=== PATIENT | female | born 1935 | race Caucasian/White ===

== ENCOUNTER 2018-09-16 10:19 | Emergency (ER) | payer MEDICARE ==
[~2018-09-16] VITALS: Ht 170.2 cm; Wt 60.0 kg
[~2018-09-16 10:19] MED LIST: APIX5TAB3 PO; QUIN10TA16 PO
[2018-09-16 10:40] LABS: BASOPHILS # (AUTO) 0.1 X10'3 (0-0.2); BASOPHILS % (AUTO) 1.4 % (0-1); EOSINOPHILS # (AUTO) 0.1 X10'3 (0-0.9); EOSINOPHILS % (AUTO) 1.3 % (0-6); HEMATOCRIT 46.1 % (35.0-45.0); HEMOGLOBIN 15.1 g/dl (12.0-16.0); LYMPHOCYTES # (AUTO) 1.7 X10'3 (1.1-4.8); LYMPHOCYTES % (AUTO) 25.8 % (21-51); MEAN CORPUSCULAR HEMOGLOBIN 28.8 PG (27.0-31.0); MEAN CORPUSCULAR HGB CONC 32.8 % (33.0-36.5); MEAN CORPUSCULAR VOLUME 87.7 FL (78-98); MEAN PLATELET VOLUME 7.8 FL (7.4-10.4); MONOCYTES # (AUTO) 0.7 X10'3 (0-0.9); MONOCYTES % (AUTO) 10.3 % (2-12); NEUTROPHILS # (AUTO) 4.2 X10'3 (1.8-7.7); NEUTROPHILS % (AUTO) 61.2 % (42-75); PLATELET COUNT 338 X10'3 (140-440); RED BLOOD COUNT 5.26 X10'6 (4.20-5.60); RED CELL DISTRIBUTION WIDTH 13.2 % (11.5-14.5); WHITE BLOOD COUNT 6.8 X10'3 (4.5-11.0)
[2018-09-16] MEDS ORDERED: SOTA80TA73 PO (10:46)
[2018-09-16 10:53] LABS: INR 1.1 INR; PARTIAL THROMBOPLASTIN TIME 42 SECONDS (22-32); PROTHROMBIN TIME 10.7 SECONDS (9.0-12.0)
[2018-09-16 10:54] LABS: ALANINE AMINOTRANSFERASE 18 U/L (12-78); ALBUMIN 3.5 G/DL (3.4-5.0); ALBUMIN/GLOBULIN RATIO 0.9 (1.1-1.5); ALKALINE PHOSPHATASE 90 IU/L (46-116); ANION GAP 8 (8-16); ASPARTATE AMINO TRANSFERASE 13 U/L (10-37); BILIRUBIN,TOTAL 0.6 MG/DL (0.1-1.0); BLOOD UREA NITROGEN 15 MG/DL (7-18); BUN/CREATININE RATIO 16.1 (6.6-38.0); CALCIUM 8.6 MG/DL (8.5-10.1); CHLORIDE 104 MMOL/L (99-107); CREATININE 0.93 MG/DL (0.40-0.90); GLUCOSE 128 MG/DL (70-104); POTASSIUM 4.2 MMOL/L (3.5-5.1); SODIUM 138 MMOL/L (135-145); TOTAL CARBON DIOXIDE 25.8 MMOL/L (24-32); TOTAL PROTEIN 7.4 G/DL (6.4-8.2); eGFR 58 ML/MIN
[2018-09-16] MEDS ORDERED: diltiazem 5mg/ml 5ml inj. IV ONE ×3 (10:55→14:35)
[2018-09-16] MEDS ORDERED: magnesium 2GM in 50ml NS 50 ML IV ONE (10:55)
[2018-09-16] MEDS ORDERED: diltiazem-D5W 125mg/125ml 125 ML IV ONE (10:55)
[2018-09-16] MEDS ORDERED: normal saline 1000ml 1,000 ML IV ONE (10:55)
[2018-09-16] MEDS ORDERED: aspirin 325mg tablet PO ONE (10:55)
--- NOTE | 2018-09-16 10:58 | NUR ---
PT MOVED FROM [facility] BED TO BED 04
--- NOTE | 2018-09-16 11:49 | NUR ---
brake note:patient on bed,family at bedside,denies discomfort.We Will monitor.
--- NOTE | 2018-09-16 11:53 | NUR ---
Dr. Trent is in a procedure and will not be avaiable for another hour.
--- NOTE | 2018-09-16 13:42 | NUR ---
PT SITTING UP IN BED, LAB AT BEDSIDE TO DRAW 3 HOUR TROPONIN.
[2018-09-16] MEDS ORDERED: sotalol 80mg tablet PO ONE (14:20)
--- NOTE | 2018-09-16 14:29 | NUR ---
PT AMBULATORY TO THE BATHROOM WITH STEADY GAIT, CORAL TO PHARMACY TO [facility] PER ORDERS FOR TREAT AND DISCHARGE.
[2018-09-16 14:52] VITALS: BP 140/87
== END 2018-09-16 15:10 | disposition home or self-care (01) ==
LOC: ER 10:19
DX: I48.92 Unspecified atrial flutter (principal); I48.91 Unspecified atrial fibrillation; Z98.890 Other specified postprocedural states; Z90.89 Acquired absence of other organs; Z88.6 Allergy status to analgesic agent; Z88.0 Allergy status to penicillin; Z88.2 Allergy status to sulfonamides
CPT/HCPCS: 36415; 71045; 80053; 83735; 84484; 85025; 85610; 85730; 93005; 96365; 96368; 96376; 99284; J3475; J7030; J3490

== ENCOUNTER 2019-02-09 09:10 | Emergency (ER) | payer MEDICARE ==
[~2019-02-09] VITALS: Ht 170.2 cm; Wt 60.0 kg
[~2019-02-09 09:10] MED LIST changes: +SOTA80TA73 PO
[2019-02-09 09:33] LABS: HEMOGLOBIN 14.8 g/dl (12.0-16.0); LYMPHOCYTES # (AUTO) 2.1 X10'3 (1.1-4.8); MEAN PLATELET VOLUME 7.4 FL (7.4-10.4); MONOCYTES # (AUTO) 0.7 X10'3 (0-0.9)
[2019-02-09 09:35] LABS: BASOPHILS % (AUTO) 0.3 % (0-1); EOSINOPHILS # (AUTO) 0.2 X10'3 (0-0.9); EOSINOPHILS % (AUTO) 2.6 % (0-6); HEMATOCRIT 43.7 % (35.0-45.0); LYMPHOCYTES % (AUTO) 32.7 % (21-51); MEAN CORPUSCULAR HGB CONC 33.8 g/dL (33.0-36.5); MEAN CORPUSCULAR VOLUME 85.7 FL (78-98); MONOCYTES % (AUTO) 11.2 % (2-12); NEUTROPHILS # (AUTO) 3.4 X10'3 (1.8-7.7); NEUTROPHILS % (AUTO) 53.2 % (42-75); PLATELET COUNT 282 X10'3 (140-440); RED CELL DISTRIBUTION WIDTH 14.5 % (11.5-14.5); WHITE BLOOD COUNT 6.4 X10'3 (4.5-11.0)
[2019-02-09 09:50] LABS: ALANINE AMINOTRANSFERASE 18 U/L (12-78); ALBUMIN 3.5 G/DL (3.4-5.0); ALBUMIN/GLOBULIN RATIO 0.9 (1.1-1.5); ALKALINE PHOSPHATASE 85 IU/L (46-116); ANION GAP 7 (8-16); ASPARTATE AMINO TRANSFERASE 10 U/L (10-37); BILIRUBIN,TOTAL 0.4 MG/DL (0.1-1.0); BLOOD UREA NITROGEN 18 MG/DL (7-18); BUN/CREATININE RATIO 18.9 (6.6-38.0); CALCIUM 9.1 MG/DL (8.5-10.1); CHLORIDE 106 MMOL/L (99-107); CREATININE 0.95 MG/DL (0.40-0.90); GLUCOSE 127 MG/DL (70-104); PARTIAL THROMBOPLASTIN TIME 35 SECONDS (22-32); POTASSIUM 4.2 MMOL/L (3.5-5.1); SODIUM 140 MMOL/L (135-145); TOTAL PROTEIN 7.4 G/DL (6.4-8.2); eGFR 56 ML/MIN
[2019-02-09 10:07] LABS: MAGNESIUM 1.9 MG/DL (1.5-2.4)
[2019-02-09] MEDS ORDERED: CHOL100044 PO (10:48)
[2019-02-09 10:51] LABS: CLARITY,URINE CLEAR (Clear); COLOR,URINE YELLOW (Yellow); GLUCOSE, URINE NEGATIVE (Neg); KETONES,URINE NEGATIVE (Neg); LEUKOCYTE ESTERASE ,URINE NEGATIVE (Neg); NITRITES, URINE NEGATIVE (Neg); OCCULT BLOOD,URINE MODERATE (Neg); PROTEIN,URINE NEGATIVE (Neg); UROBILINOGEN,URINE 0.2 E.U/dL (0.2-1.0)
[2019-02-09 10:52] LABS: UA COLLECTION TYPE CLN CATCH MIDSTREAM
[2019-02-09 10:56] LABS: MUCUS STRANDS FEW /LPF (Neg); SQUAMOUS EPITHELIAL CELL,UR MODERATE /LPF (FEW)
[2019-02-09 10:57] LABS: BACTERIA,URINE FEW /HPF (Neg); RBC,URINE 0-2 /HPF (0-2); WBC,URINE 0-4 /HPF (0-4)
[2019-02-09] MEDS ORDERED: normal saline 1000ML IV soln IVB ONE (11:25)
[2019-02-09] MEDS ORDERED: etomidate 2mg/ml inj. IV ONE (11:25)
--- NOTE | 2019-02-09 12:02 | NUR ---
SUCCESSFUL CARDIOVERSION, HEART RATE DROPPED FROM 120-140 DOWN TO 60-80, NO ADVERSE S/E FROM [facility] NOTED
[2019-02-09 12:31] VITALS: BP 155/99
--- NOTE | 2019-02-09 12:38 | NUR ---
amb on RA 99% HR 76. NO C/O OF WEAKNESS OR DIZZINESS
== END 2019-02-09 13:00 | disposition home or self-care (01) ==
LOC: ER 09:10
DX: I48.0 Paroxysmal atrial fibrillation (principal); Z98.890 Other specified postprocedural states; Z88.6 Allergy status to analgesic agent; Z88.0 Allergy status to penicillin; Z88.2 Allergy status to sulfonamides; Z88.8 Allergy status to other drugs, medicaments and biological substances; Z79.01 Long term (current) use of anticoagulants; Z79.899 Other long term (current) drug therapy
CPT/HCPCS: 36415; 71045; 80053; 81001; 83735; 83880; 84145; 84484; 85025; 85610; 85730; 87070; 92960; 93005; 99285; J7030; J3490

== ENCOUNTER 2021-12-17 10:36 | Day surgery (SDC) | payer MEDICARE ==
[2021-12-17] VITALS (9 sets, daily range): BP systolic 107–125; BP diastolic 65–81
[~2021-12-17] VITALS: Ht 170.2 cm; Wt 62.6 kg
[~2021-12-17 10:36] MED LIST changes: +CHOL100044 PO; -QUIN10TA16 PO
[2021-12-17] MEDS ORDERED: MIDAZolam 1mg/ml 10ml vial IV ONE (10:55)
[2021-12-17] MEDS ORDERED: fentaNYL/PF 50MCG/1 ML 2ML syringe IV ONE (10:55)
[2021-12-17] MEDS ORDERED: normal saline 1000ml 1,000 ML IV SCH (10:55)
[2021-12-17] MEDS ORDERED: DRON400T6 PO (11:01)
[2021-12-17] MEDS ORDERED: OSC500T PO (11:01)
[2021-12-17] MEDS ORDERED: FURO40TA4 PO (11:01)
[2021-12-17] MEDS ORDERED: VITC500T PO (11:01)
[2021-12-29] MEDS ORDERED: METO-395 PO (03:29)
[2021-12-29] MEDS ORDERED: POTA20PA31 PO (11:22)
[2022-01-02] MEDS ORDERED: SACU1TAB PO (11:34)
[2022-01-02] MEDS ORDERED: EMPA10TA PO (11:34)
[2022-01-02] MEDS ORDERED: AMIO200T67 PO (11:34)
[2022-01-02] MEDS ORDERED: METO-395 PO (11:34)
== END 2021-12-17 14:25 | disposition home or self-care (01) ==
LOC: SSTAY O 10:36
PROVIDERS: ATTEND Internal Medicine Interventional Cardiology
DX: I48.0 Paroxysmal atrial fibrillation (principal); I10 Essential (primary) hypertension; I42.9 Cardiomyopathy, unspecified; F17.210 Nicotine dependence, cigarettes, uncomplicated; Z88.0 Allergy status to penicillin; Z88.2 Allergy status to sulfonamides; Z88.8 Allergy status to other drugs, medicaments and biological substances; Z79.01 Long term (current) use of anticoagulants; Z79.899 Other long term (current) drug therapy
CPT/HCPCS: 92960; 93005; J2250; J3010; J7030

== ENCOUNTER 2022-02-07 02:09 | Inpatient (IN) | payer MEDICARE ==
[~2022-02-07] VITALS: Ht 167.6 cm; Wt 59.3 kg
[~2022-02-07 02:09] MED LIST changes: +AMIO200T67 PO; +EMPA10TA PO; +FURO40TA4 PO; +METO-395 PO; +OSC500T PO; +POTA20PA31 PO; +SACU1TAB PO; -SOTA80TA73 PO; +VITC500T PO
[2022-02-07 02:43] LABS: BASOPHILS # (AUTO) 0.1 X10'3 (0-0.2); BASOPHILS % (AUTO) 1.4 % (0-1); EOSINOPHILS # (AUTO) 0.3 X10'3 (0-0.9); EOSINOPHILS % (AUTO) 3.4 % (0-6); HEMATOCRIT 43.5 % (35.0-45.0); HEMOGLOBIN 14.4 g/dl (12.0-16.0); LYMPHOCYTES # (AUTO) 2.6 X10'3 (1.1-4.8); LYMPHOCYTES % (AUTO) 27.6 % (21-51); MEAN CORPUSCULAR HEMOGLOBIN 28.7 PG (27.0-31.0); MEAN PLATELET VOLUME 7.8 FL (7.4-10.4); MONOCYTES # (AUTO) 0.8 X10'3 (0-0.9); MONOCYTES % (AUTO) 8.9 % (2-12); NEUTROPHILS # (AUTO) 5.5 X10'3 (1.8-7.7); NEUTROPHILS % (AUTO) 58.7 % (42-75); PLATELET COUNT 288 X10'3 (140-440); RED BLOOD COUNT 5.01 X10'6 (4.20-5.60); RED CELL DISTRIBUTION WIDTH 15.3 % (11.5-14.5); WHITE BLOOD COUNT 9.3 X10'3 (4.5-11.0)
[2022-02-07 02:48] LABS: ALANINE AMINOTRANSFERASE 35 U/L (12-78); ALBUMIN 3.3 G/DL (3.4-5.0); ALBUMIN/GLOBULIN RATIO 0.9 (1.1-1.5); ALKALINE PHOSPHATASE 96 IU/L (46-116); ANION GAP 9 (8-16); ASPARTATE AMINO TRANSFERASE 31 U/L (10-37); BILIRUBIN,TOTAL 0.6 MG/DL (0.1-1.0); BLOOD UREA NITROGEN 22 MG/DL (7-18); CALCIUM 8.4 MG/DL (8.5-10.1); CHLORIDE 107 MMOL/L (99-107); CREATININE 1.16 MG/DL (0.40-0.90); GLUCOSE 189 MG/DL (70-104); POTASSIUM 4.6 MMOL/L (3.5-5.1); SODIUM 140 MMOL/L (135-145); TOTAL CARBON DIOXIDE 23.7 MMOL/L (24-32); TOTAL PROTEIN 6.9 G/DL (6.4-8.2); eGFR 44 ML/MIN
[2022-02-07 02:53] LABS: D-DIMER 0.59 MG/L FEU (0-0.50)
[2022-02-07 02:57] LABS: MAGNESIUM 2.1 MG/DL (1.5-2.4)
[2022-02-07] MEDS ORDERED: furosemide 10 MG/1 ML 10ml inj IV ONE (03:20)
[2022-02-07] MEDS ORDERED: acetaminophen 325mg tablet PO PRN ×2 (03:40)
[2022-02-07] MEDS ORDERED: ondansetron/PF 4mg/2ml inj IV PRN (03:40)
[2022-02-07] MEDS ORDERED: morphine 2 MG/ML inj. syringe IV PRN ×2 (03:40)
[2022-02-07] MEDS ORDERED: magnesium hydroxide 30ml (MOM) UD suspension PO PRN (03:40)
[2022-02-07] MEDS ORDERED: mag hydrox/Alum hydrox/simeth 30ml oral suspension PO PRN (03:40)
[2022-02-07] MEDS ORDERED: HYDROcodone/acetaminophen 5mg/325mg tablet PO PRN (03:40)
[2022-02-07 04:41] LABS: CLARITY,URINE CLEAR (Clear); COLOR,URINE YELLOW (Yellow); GLUCOSE, URINE NEGATIVE (Neg); KETONES,URINE NEGATIVE (Neg); LEUKOCYTE ESTERASE ,URINE NEGATIVE (Neg); NITRITES, URINE NEGATIVE (Neg); OCCULT BLOOD,URINE NEGATIVE (Neg); PROTEIN,URINE NEGATIVE (Neg); UROBILINOGEN,URINE 0.2 E.U/dL (0.2-1.0)
[2022-02-07 04:49] LABS: UA COLLECTION TYPE URINAL
[2022-02-07] MEDS ORDERED: EMPA25TA PO (06:21)
[2022-02-07] MEDS ORDERED: DRON400T6 PO (06:21)
[2022-02-07] MEDS ORDERED: AMIO200T61 PO (06:21)
[2022-02-07] MEDS ORDERED: METO-384 PO (06:21)
[2022-02-07] MEDS: docusate sod 100mg capsule PO SCH ×2 (08:00→19:32)
[2022-02-07] MEDS ORDERED: furosemide 40mg/4ml inj IV SCH ×2 (08:00→16:49)
[2022-02-07 08:13] LABS: HEMOGLOBIN A1C 6.2 % (4.5-6.2)
--- NOTE | 2022-02-07 08:47 | NUR ---
patient placed on a wic.
[2022-02-07 13:15] VITALS: BP 126/79
[2022-02-07 15:00] VITALS: BP 110/73
--- NOTE | 2022-02-07 17:10 | NUR ---
CONTACTED PHARMACY TO CHANGE THE TIME OF LASIX 40MG IV BID, FROM 1999 TO 1600 TO IMPROVE THE PT'S REST.
[2022-02-07 18:00] VITALS: BP 129/84
--- NOTE | 2022-02-07 18:21 | NUR ---
Patient in room PCU 3017. I have received report from SHANELLE BARNARD, and had the opportunity to ask questions and assume patient care.
[2022-02-07] MEDS: apixaban 5mg tablet PO SCH (19:32)
[2022-02-07 22:00] VITALS: BP 114/74
[2022-02-08 02:00] VITALS: BP 98/65
[2022-02-08 06:00] VITALS: BP 96/68
[2022-02-08 06:46] LABS: ALBUMIN 2.8 G/DL (3.4-5.0); ANION GAP 11 (8-16); BLOOD UREA NITROGEN 22 MG/DL (7-18); BUN/CREATININE RATIO 20.8 (6.6-38.0); CALCIUM 8.5 MG/DL (8.5-10.1); CHLORIDE 102 MMOL/L (99-107); CREATININE 1.06 MG/DL (0.40-0.90); GLUCOSE 95 MG/DL (70-104); POTASSIUM 3.9 MMOL/L (3.5-5.1); SODIUM 140 MMOL/L (135-145); TOTAL CARBON DIOXIDE 27.3 MMOL/L (24-32); eGFR 49 ML/MIN
--- NOTE | 2022-02-08 06:46 | NUR ---
Patient in room PCU 3017. I have received report from RADHA BARNARD, and had the opportunity to ask questions and assume patient care.
[2022-02-08 06:47] LABS: EOSINOPHILS # (AUTO) 0.2 X10'3 (0-0.9); LYMPHOCYTES # (AUTO) 1.3 X10'3 (1.1-4.8); MONOCYTES # (AUTO) 0.7 X10'3 (0-0.9); NEUTROPHILS # (AUTO) 3.1 X10'3 (1.8-7.7); RED BLOOD COUNT 4.93 X10'6 (4.20-5.60)
[2022-02-08 06:51] LABS: BASOPHILS % (AUTO) 0.6 % (0-1); EOSINOPHILS % (AUTO) 3.2 % (0-6); LYMPHOCYTES % (AUTO) 24.6 % (21-51); MEAN CORPUSCULAR HEMOGLOBIN 28.5 PG (27.0-31.0); MEAN CORPUSCULAR HGB CONC 33.5 g/dL (33.0-36.5); MEAN CORPUSCULAR VOLUME 85.2 FL (78-98); MEAN PLATELET VOLUME 7.5 FL (7.4-10.4); MONOCYTES % (AUTO) 12.9 % (2-12); NEUTROPHILS % (AUTO) 58.7 % (42-75); PLATELET COUNT 252 X10'3 (140-440); RED CELL DISTRIBUTION WIDTH 14.5 % (11.5-14.5); WHITE BLOOD COUNT 5.3 X10'3 (4.5-11.0)
[2022-02-08] MEDS ORDERED: metoprolol succinate 25mg (24-HOUR) SR. Tablet PO SCH (08:00)
[2022-02-08] MEDS: furosemide 40mg/4ml inj IV SCH ×2 (08:12→15:47)
[2022-02-08] MEDS: apixaban 5mg tablet PO SCH ×2 (08:16→19:15)
[2022-02-08] MEDS: EMPAGLIFLOZIN 25 MG TABLET PO SCH (08:17)
[2022-02-08] MEDS: amiodarone 200mg tablet PO SCH (08:22)
[2022-02-08] MEDS: docusate sod 100mg capsule PO SCH ×2 (08:23→19:16)
[2022-02-08] MEDS: losartan 25mg tablet PO SCH (08:23)
[2022-02-08] MEDS ORDERED: metoprolol succinate 25mg (24-HOUR) SR. Tablet PO ONE (09:50)
[2022-02-08 11:00] VITALS: BP 122/81
[2022-02-08] MEDS ORDERED: ondansetron 4mg rapidly disintigrating tab PO PRN (13:40)
[2022-02-08 15:00] VITALS: BP 100/68
--- NOTE | 2022-02-08 16:25 | NUR ---
Patient in room PCU 3017. I have received report from RADHA Abraham and had the opportunity to ask questions and assume patient care.
[2022-02-08 18:00] VITALS: BP 127/106
--- NOTE | 2022-02-08 18:30 | NUR ---
Problems reprioritized. Patient report given, questions answered & plan of care reviewed with SHANELLE Simms.
[2022-02-08 22:00] VITALS: BP 103/71
[2022-02-09] VITALS (8 sets, daily range): BP systolic 94–127; BP diastolic 61–89
[2022-02-09] MEDS ORDERED: digoxin 250mcg/ml 2ml ampule IV ONE ×2 (02:00→17:50)
--- NOTE | 2022-02-09 06:10 | NUR ---
Patient in room PCU 3017. I have received report from RADHA Simms and had the opportunity to ask questions and assume patient care.
[2022-02-09 06:17] LABS: BASOPHILS # (AUTO) 0.1 X10'3 (0-0.2); EOSINOPHILS # (AUTO) 0.3 X10'3 (0-0.9); EOSINOPHILS % (AUTO) 4.4 % (0-6); HEMATOCRIT 41.7 % (35.0-45.0); HEMOGLOBIN 13.9 g/dl (12.0-16.0); LYMPHOCYTES # (AUTO) 1.2 X10'3 (1.1-4.8); LYMPHOCYTES % (AUTO) 19.8 % (21-51); MEAN CORPUSCULAR HEMOGLOBIN 28.2 PG (27.0-31.0); MEAN CORPUSCULAR HGB CONC 33.4 g/dL (33.0-36.5); MEAN CORPUSCULAR VOLUME 84.3 FL (78-98); MEAN PLATELET VOLUME 7.6 FL (7.4-10.4); MONOCYTES # (AUTO) 0.8 X10'3 (0-0.9); MONOCYTES % (AUTO) 13.3 % (2-12); NEUTROPHILS # (AUTO) 3.6 X10'3 (1.8-7.7); NEUTROPHILS % (AUTO) 60.5 % (42-75); PLATELET COUNT 275 X10'3 (140-440); RED BLOOD COUNT 4.95 X10'6 (4.20-5.60); RED CELL DISTRIBUTION WIDTH 14.4 % (11.5-14.5)
[2022-02-09 06:44] LABS: ALBUMIN 2.8 G/DL (3.4-5.0); ANION GAP 9 (8-16); BLOOD UREA NITROGEN 26 MG/DL (7-18); CALCIUM 8.6 MG/DL (8.5-10.1); CHLORIDE 101 MMOL/L (99-107); CREATININE 1.18 MG/DL (0.40-0.90); GLUCOSE 101 MG/DL (70-104); POTASSIUM 3.3 MMOL/L (3.5-5.1); SODIUM 139 MMOL/L (135-145); TOTAL CARBON DIOXIDE 28.9 MMOL/L (24-32); eGFR 44 ML/MIN
[2022-02-09] MEDS ORDERED: POTASSIUM BICARB 20meq eff tab 20 MEQ TABLET.EFF PO PRN (07:20)
[2022-02-09] MEDS ORDERED: magnesium Cl slow-release 64mg tablet PO PRN (07:20)
[2022-02-09] MEDS ORDERED: potassium CL 10mEq/100ml bag 100 ML IV PRN (07:20)
[2022-02-09] MEDS ORDERED: magnesium 4gm in 100ml NS 100 ML IV PRN (07:20)
[2022-02-09] MEDS ORDERED: magnesium 2GM in 50ml NS 50 ML IV PRN (07:20)
[2022-02-09] MEDS ORDERED: metoprolol succinate 25mg (24-HOUR) SR. Tablet PO SCH (08:00)
[2022-02-09 08:01] LABS: MAGNESIUM 1.9 MG/DL (1.5-2.4)
[2022-02-09] MEDS: K and/or MAG REPLACEMENT MC SCH ×2 (10:18→19:32)
[2022-02-09] MEDS: POTASSIUM BICARB 20meq eff tab 20 MEQ TABLET.EFF PO PRN ×3 (10:35→17:56)
[2022-02-09] MEDS: EMPAGLIFLOZIN 25 MG TABLET PO SCH (10:35)
[2022-02-09] MEDS: amiodarone 200mg tablet PO SCH (10:35)
[2022-02-09] MEDS: losartan 25mg tablet PO SCH (10:36)
[2022-02-09] MEDS: docusate sod 100mg capsule PO SCH ×2 (10:37→19:32)
[2022-02-09] MEDS: apixaban 5mg tablet PO SCH ×2 (10:38→19:32)
[2022-02-09] MEDS: furosemide 40mg/4ml inj IV SCH ×2 (10:38→16:00)
[2022-02-09] MEDS: metoprolol succinate 25mg (24-HOUR) SR. Tablet PO SCH (14:20)
--- NOTE | 2022-02-09 18:20 | NUR ---
Problems reprioritized. Patient report given, questions answered & plan of care reviewed with RADHA Jackson.
--- NOTE | 2022-02-09 18:22 | NUR ---
Patient in room PCU 3013V. I have received report from RADHA Sanchez and had the opportunity to ask questions and assume patient care.
[2022-02-10 01:56] VITALS: BP 131/85
[2022-02-10] MEDS ORDERED: digoxin 250mcg/ml 2ml ampule IV SCH (02:30)
[2022-02-10 06:00] VITALS: BP 119/77
[2022-02-10 06:41] LABS: ALBUMIN 2.8 G/DL (3.4-5.0); ANION GAP 6 (8-16); BLOOD UREA NITROGEN 21 MG/DL (7-18); BUN/CREATININE RATIO 20.6 (6.6-38.0); CALCIUM 8.5 MG/DL (8.5-10.1); CHLORIDE 102 MMOL/L (99-107); CREATININE 1.02 MG/DL (0.40-0.90); GLUCOSE 108 MG/DL (70-104); MAGNESIUM 2.2 MG/DL (1.5-2.4); POTASSIUM 4.4 MMOL/L (3.5-5.1); SODIUM 138 MMOL/L (135-145); TOTAL CARBON DIOXIDE 29.9 MMOL/L (24-32); eGFR 52 ML/MIN
[2022-02-10 06:42] LABS: BASOPHILS # (AUTO) 0.1 X10'3 (0-0.2); BASOPHILS % (AUTO) 1.4 % (0-1); EOSINOPHILS # (AUTO) 0.3 X10'3 (0-0.9); EOSINOPHILS % (AUTO) 5.1 % (0-6); HEMOGLOBIN 14.5 g/dl (12.0-16.0); LYMPHOCYTES # (AUTO) 0.8 X10'3 (1.1-4.8); LYMPHOCYTES % (AUTO) 14.8 % (21-51); MEAN CORPUSCULAR HEMOGLOBIN 27.8 PG (27.0-31.0); MEAN CORPUSCULAR HGB CONC 32.9 g/dL (33.0-36.5); MEAN CORPUSCULAR VOLUME 84.4 FL (78-98); MEAN PLATELET VOLUME 7.4 FL (7.4-10.4); MONOCYTES # (AUTO) 0.8 X10'3 (0-0.9); MONOCYTES % (AUTO) 14.3 % (2-12); NEUTROPHILS # (AUTO) 3.5 X10'3 (1.8-7.7); NEUTROPHILS % (AUTO) 64.4 % (42-75); PLATELET COUNT 296 X10'3 (140-440); RED BLOOD COUNT 5.21 X10'6 (4.20-5.60); RED CELL DISTRIBUTION WIDTH 14.3 % (11.5-14.5); WHITE BLOOD COUNT 5.5 X10'3 (4.5-11.0)
--- NOTE | 2022-02-10 06:53 | NUR ---
Problems reprioritized. Patient report given, questions answered & plan of care reviewed with RADHA Abraham.
--- NOTE | 2022-02-10 07:11 | NUR ---
Patient in room PCU 3017. I have received report from RADHA LOPEZ, and had the opportunity to ask questions and assume patient care.
[2022-02-10] MEDS: K and/or MAG REPLACEMENT MC SCH ×2 (08:00→19:46)
[2022-02-10] MEDS: furosemide 40mg/4ml inj IV SCH ×2 (09:04→17:11)
[2022-02-10] MEDS: EMPAGLIFLOZIN 25 MG TABLET PO SCH (09:06)
[2022-02-10] MEDS: docusate sod 100mg capsule PO SCH ×2 (09:06→19:41)
[2022-02-10] MEDS: amiodarone 200mg tablet PO SCH (09:06)
[2022-02-10] MEDS: metoprolol succinate 25mg (24-HOUR) SR. Tablet PO SCH (09:07)
[2022-02-10] MEDS: apixaban 5mg tablet PO SCH ×2 (09:07→19:41)
--- NOTE | 2022-02-10 09:29 | NUR ---
DIGOXIN 250 MCG/1 ML GIVEN AT 0930. THE ORDER WAS VERIFIED WITH DR. RUIZ. UNABLE TO SCAN MED, PHARMACY PHONED, SITUATION EXPLAINED. PHARM WORKING ON SOLUTION.
[2022-02-10 11:00] VITALS: BP 119/65
[2022-02-10] MEDS: losartan 25mg tablet PO SCH (13:08)
[2022-02-10 15:00] VITALS: BP 115/76
[2022-02-10 18:00] VITALS: BP 132/72
--- NOTE | 2022-02-10 18:16 | NUR ---
Patient in room PCU 3012I. I have received report from RADHA Abraham and had the opportunity to ask questions and assume patient care.
--- NOTE | 2022-02-10 18:21 | NUR ---
Problems reprioritized. Patient report given, questions answered & plan of care reviewed with RADHA LOPEZ.
[2022-02-10 22:00] VITALS: BP 90/59
[2022-02-11 01:57] VITALS: BP 104/54
[2022-02-11 06:00] VITALS: BP 122/81
--- NOTE | 2022-02-11 06:15 | NUR ---
Patient in room PCU 3017. I have received report from Renetta GARCIA and had the opportunity to ask questions and assume patient care.
--- NOTE | 2022-02-11 06:20 | NUR ---
Problems reprioritized. Patient report given, questions answered & plan of care reviewed with RADHA Hassan.
[2022-02-11 06:57] LABS: BASOPHILS # (AUTO) 0.1 X10'3 (0-0.2); EOSINOPHILS # (AUTO) 0.3 X10'3 (0-0.9); LYMPHOCYTES # (AUTO) 1.1 X10'3 (1.1-4.8); MEAN PLATELET VOLUME 7.4 FL (7.4-10.4); MONOCYTES # (AUTO) 0.8 X10'3 (0-0.9); NEUTROPHILS # (AUTO) 2.9 X10'3 (1.8-7.7); PLATELET COUNT 340 X10'3 (140-440); WHITE BLOOD COUNT 5.2 X10'3 (4.5-11.0)
[2022-02-11 06:59] LABS: BASOPHILS % (AUTO) 2.1 % (0-1); EOSINOPHILS % (AUTO) 5.8 % (0-6); HEMOGLOBIN 15.6 g/dl (12.0-16.0); LYMPHOCYTES % (AUTO) 21.6 % (21-51); MEAN CORPUSCULAR HEMOGLOBIN 28.4 PG (27.0-31.0); MEAN CORPUSCULAR HGB CONC 33.2 g/dL (33.0-36.5); MEAN CORPUSCULAR VOLUME 85.5 FL (78-98); MONOCYTES % (AUTO) 15.3 % (2-12); NEUTROPHILS % (AUTO) 55.2 % (42-75); RED CELL DISTRIBUTION WIDTH 14.4 % (11.5-14.5)
[2022-02-11 07:16] LABS: ALBUMIN 3.1 G/DL (3.4-5.0); ANION GAP 9 (8-16); BLOOD UREA NITROGEN 24 MG/DL (7-18); BUN/CREATININE RATIO 18.9 (6.6-38.0); CALCIUM 8.9 MG/DL (8.5-10.1); CHLORIDE 99 MMOL/L (99-107); CREATININE 1.27 MG/DL (0.40-0.90); GLUCOSE 94 MG/DL (70-104); MAGNESIUM 2.3 MG/DL (1.5-2.4); POTASSIUM 3.9 MMOL/L (3.5-5.1); SODIUM 139 MMOL/L (135-145); TOTAL CARBON DIOXIDE 31.5 MMOL/L (24-32); eGFR 40 ML/MIN
[2022-02-11] MEDS: K and/or MAG REPLACEMENT MC SCH (08:00)
[2022-02-11] MEDS ORDERED: digoxin 125mcg (0.125mg) tablet PO SCH (08:00)
[2022-02-11] MEDS: docusate sod 100mg capsule PO SCH (08:00)
[2022-02-11] MEDS: metoprolol succinate 25mg (24-HOUR) SR. Tablet PO SCH (08:45)
[2022-02-11] MEDS ORDERED: furosemide 40mg tablet PO SCH (08:45)
[2022-02-11] MEDS: apixaban 5mg tablet PO SCH (08:45)
[2022-02-11] MEDS: amiodarone 200mg tablet PO SCH (08:46)
[2022-02-11] MEDS: EMPAGLIFLOZIN 25 MG TABLET PO SCH (08:46)
[2022-02-11] MEDS ORDERED: spironolactone 25 MG tablet PO SCH (09:05)
[2022-02-11 09:33] VITALS: BP_SYST 102
[2022-02-11] MEDS ORDERED: METO-395 PO (09:43)
[2022-02-11] MEDS ORDERED: SPIR25TA PO (09:43)
[2022-02-11] MEDS ORDERED: LOSA25TA41 PO (09:43)
--- NOTE | 2022-02-11 11:50 | NUR ---
Patient stable for discharge per Dr. Jenkins orders. All discharge instructions reviewed with patient and all questions answered. New prescriptions e scripted to [facility] in [place]. PIV discontinued, cannula intact. Tele discontinued. All belongings collected and sent with patient. Wheeled to lobby via nurses aid and picked up via family.
[2022-02-11] MEDS ORDERED: losartan 25mg tablet PO SCH (21:00)
== END 2022-02-11 11:40 | disposition home health service (06) | DRG 291 ==
LOC: ER 02:09 → ED HOLD 03:42 → PCU 3S 12:32
PROVIDERS: ADMIT Internal Medicine; ATTEND Family Medicine
DX: I13.0 Hypertensive heart and chronic kidney disease with heart failure and stage 1 through stage 4 chronic kidney disease, or unspecified chronic kidney disease (principal); I50.23 Acute on chronic systolic (congestive) heart failure; J96.01 Acute respiratory failure with hypoxia; N17.0 Acute kidney failure with tubular necrosis; I48.20 Chronic atrial fibrillation, unspecified; E11.22 Type 2 diabetes mellitus with diabetic chronic kidney disease; E87.6 Hypokalemia; F17.210 Nicotine dependence, cigarettes, uncomplicated; I42.0 Dilated cardiomyopathy; R11.2 Nausea with vomiting, unspecified; I48.0 Paroxysmal atrial fibrillation; Z96.649 Presence of unspecified artificial hip joint; J44.9 Chronic obstructive pulmonary disease, unspecified; N18.9 Chronic kidney disease, unspecified; Z79.899 Other long term (current) drug therapy; Z79.01 Long term (current) use of anticoagulants; Z88.0 Allergy status to penicillin; Z88.2 Allergy status to sulfonamides; Z88.8 Allergy status to other drugs, medicaments and biological substances; Z71.6 Tobacco abuse counseling
CPT/HCPCS: 36415; 71045; 80048; 80053; 80162; 81003; 83036; 83735; 83880; 84484; 85025; 85379; 85610; 87081; 96374; 99285; G0378; J1160; J1940

== ENCOUNTER 2023-06-16 09:57 | Outpatient (CLI) | payer MEDICARE ==
[~2023-06-16 09:57] MED LIST changes: +AMI200T PO; -AMIO200T67 PO; -EMPA10TA PO; +EMPA25TA PO; +LOSA25TA41 PO; -SACU1TAB PO; +SPIR25TA PO
[2023-06-16 11:32] LABS: BASOPHILS # (AUTO) 0.1 X10'3 (0-0.2); EOSINOPHILS # (AUTO) 0.1 X10'3 (0-0.9); EOSINOPHILS % (AUTO) 2.1 % (0-6); HEMOGLOBIN 13.7 g/dl (12.0-16.0); LYMPHOCYTES # (AUTO) 1.3 X10'3 (1.1-4.8); MONOCYTES # (AUTO) 0.5 X10'3 (0-0.9); NEUTROPHILS # (AUTO) 2.7 X10'3 (1.8-7.7); PLATELET COUNT 254 X10'3 (140-440)
[2023-06-16 11:34] LABS: BASOPHILS % (AUTO) 2.5 % (0-1); HEMATOCRIT 41.9 % (35.0-45.0); LYMPHOCYTES % (AUTO) 27.4 % (21-51); MEAN CORPUSCULAR HEMOGLOBIN 28.9 PG (27.0-31.0); MEAN CORPUSCULAR HGB CONC 32.6 g/dL (33.0-36.5); MEAN CORPUSCULAR VOLUME 88.8 FL (78-98); MEAN PLATELET VOLUME 7.3 FL (7.4-10.4); MONOCYTES % (AUTO) 10.9 % (2-12); NEUTROPHILS % (AUTO) 57.1 % (42-75); RED BLOOD COUNT 4.72 X10'6 (4.20-5.60); RED CELL DISTRIBUTION WIDTH 14.4 % (11.5-14.5); WHITE BLOOD COUNT 4.8 X10'3 (4.5-11.0)
[2023-06-16 11:51] LABS: ALBUMIN 3.9 G/DL (3.4-5.0); CALCIUM 9.4 MG/DL (8.5-10.1); TOTAL CARBON DIOXIDE 30.9 MMOL/L (24-32)
[2023-06-16 12:01] LABS: PLATELET ESTIMATE NORMAL; TOTAL CELLS COUNTED 100
[2023-06-16 12:09] LABS: ANION GAP 7 (8-16); BLOOD UREA NITROGEN 22 MG/DL (7-18); BUN/CREATININE RATIO 21.6 (10.0-20.0); CHLORIDE 102 MMOL/L (99-107); CREATININE 1.02 MG/DL (0.40-0.90); GLUCOSE 87 MG/DL (70-104); POTASSIUM 3.8 MMOL/L (3.5-5.1); SODIUM 140 MMOL/L (135-145); eGFR 51 ML/MIN
== END 2023-06-16 23:59 | disposition home or self-care (01) ==
LOC: LAB 09:57
PROVIDERS: ATTEND Internal Medicine Interventional Cardiology
DX: I11.0 Hypertensive heart disease with heart failure (principal); I50.22 Chronic systolic (congestive) heart failure; I48.0 Paroxysmal atrial fibrillation
CPT/HCPCS: 36415; 80048; 85007; 85025

== ENCOUNTER 2023-06-23 11:17 | Day surgery (SDC) | payer MEDICARE ==
[2023-06-23] VITALS (8 sets, daily range): BP systolic 134–150; BP diastolic 59–71; PULSE 44–65; RESP 16; TEMP 97.5; O2SAT 96–99
[~2023-06-23] VITALS: Ht 170.2 cm; Wt 60.1 kg
[2023-06-23] MEDS ORDERED: LORazepam 0.5 MG tablet PO PRN (11:40)
[2023-06-23] MEDS ORDERED: normal saline 1,000 ML IV SCH (11:40)
[2023-06-23] MEDS ORDERED: METO-539 PO (12:15)
[2023-06-23] MEDS ORDERED: SPIR25TA5 PO (12:15)
[2023-06-23] MEDS ORDERED: LOSA50TA64 PO (12:15)
[2023-06-23] MEDS ORDERED: LEVO25TA7 PO (12:18)
[2023-06-23] MEDS ORDERED: midazolam 1 mg/ML 2ml injection ONE (12:42)
[2023-06-23] MEDS ORDERED: LIDOcaine 1% 30ml preserv. free vial ONE (12:42)
[2023-06-23] MEDS ORDERED: iohexol 350 MG/ML 50ML vial IV ONE (12:43)
[2023-06-23] MEDS ORDERED: fentaNYL/PF 50MCG/1 ML 2ML syringe ONE (12:43)
[2023-06-23] MEDS ORDERED: HYDROcodone/acetaminophen 5mg/325mg tablet PO PRN (14:50)
[2023-06-23] MEDS ORDERED: HYDROcodone/acetaminophen 10/325mg tab PO PRN (14:50)
[2023-06-23 16:23] LABS: ISTAT HGB MIX 12.2 g/dl (12.0-16.0); ISTAT Hct MIX 36 %PCV (35-45); ISTAT O2 SATURATION MIX VENOUS 51 % (60-80); ISTAT SOURCE VEN
[2023-06-23 16:23] LABS: ISTAT HGB MIX 12.2 g/dl (12.0-16.0); ISTAT Hct MIX 36 %PCV (35-45); ISTAT O2 SATURATION MIX VENOUS 51 % (60-80); ISTAT SOURCE VEN
== END 2023-06-23 16:06 | disposition home or self-care (01) ==
LOC: SSTAY O 11:17
PROVIDERS: ATTEND Student in an Organized Health Care Education/Training Program
DX: I11.0 Hypertensive heart disease with heart failure (principal); I50.9 Heart failure, unspecified; I48.91 Unspecified atrial fibrillation; Z79.890 Hormone replacement therapy; Z79.01 Long term (current) use of anticoagulants; Z79.899 Other long term (current) drug therapy; Z88.0 Allergy status to penicillin; Z88.2 Allergy status to sulfonamides; Z88.8 Allergy status to other drugs, medicaments and biological substances
CPT/HCPCS: 33289; 76937; 82803; 85014; 93005; 99152; 99153; C2624; J1644; J2250; J3490; J7030; Q9967; A6258; A6449; C1751; C1769; C1894; J3010